=== PATIENT | female | born 1990 | race Caucasian/White ===

== ENCOUNTER 2018-12-04 12:41 | Emergency (ER) | payer OTHER ==
[~2018-12-04] VITALS: Ht 160 cm; Wt 63.6 kg
[2018-12-04 12:58] VITALS: BP 144/45
[2018-12-04] MEDS ORDERED: KETOROLAC TROMETHAMINE 10 MG TABLET PO ONE (14:15)
== END 2018-12-04 14:24 | disposition home or self-care (01) ==
LOC: EMS 12:44
DX: S05.12XA Contusion of eyeball and orbital tissues, left eye, initial encounter (principal); M94.0 Chondrocostal junction syndrome [Tietze]; M79.652 Pain in left thigh; Y04.0XXA Assault by unarmed brawl or fight, initial encounter; Y93.89 Activity, other specified; Y92.89 Other specified places as the place of occurrence of the external cause; Y99.8 Other external cause status